=== PATIENT | female | born 1980 | race Caucasian/White ===

== ENCOUNTER 2017-03-21 20:25 | Emergency (ER) | payer BC, MEDICAID, OTHER ==
[2017-03-21 20:52] VITALS: BP 112/88; PULSE 94; RESP 18; TEMP 97.2; O2SAT 94
[2017-03-21] MEDS ORDERED: ONDANSETRON 4MG PREPACK#2 BTL TAKEHOME ONE (22:02)
[2017-03-21] MEDS ORDERED: ONDANSETRON DISINTEGRATING 4 MG TAB PO ONE (22:03)
--- NOTE | 2017-03-21 22:03 | UCPHY ---
H & P Time Seen by Provider: 03/21/17 21:07 Patient Type: New HPI/ROS: This patient is holding her head crying and vomited 1 time before arrival. Patient has developmental delay and is minimally verbal. this was difficult for her parents ascertain whether she had head injury or not. They her that she did have a fall during dance class but it is unclear whether she struck her head. There was not a loss of consciousness. Her father clarifies that she vomited 2 times prior to arrival and she is tearful and holding her head. She points to the right parietal area as the site of pain. She is tearful on arrival. ROS: Limited due to the patient's disability but she seems to deny any neck or back pain. Patient was emotionally upset about not being able to watch a movie earlier that day per her father. Parents noted no wound to her head and no obvious trauma elsewhere. She is ambulating without difficulty. Neuro: She has a history of seizures but no known seizures today. No tongue biting or incontinence per parents. 10 point ROS is limited but otherwise negative Past Medical/Surgical History: Developmental delay Seizures Smoking Status: Never smoked Physical Exam: Physical exam: Vital signs are normal General: Patient is in no acute distress. HEENT: Is no external evidence of trauma on exam except for mild right parietal tenderness without hematoma, abrasion or laceration.. Nose atraumatic. Ears: Clear bilaterally with no hemotympanum. Oropharynx: No dental trauma or malocclusion. No intraoral lacerations. Eyes: Pupils are equal and reactive to light. She has a baseline dysconjugate gaze. 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 Optic fundi: Unable to perform due to patient not cooperating with exam. Neck: Trachea is midline with no stridor. The patient has no midline neck tenderness and retains a full range of motion without increase in pain. Lungs: Clear to auscultation bilaterally Cardiac: Regular rate and rhythm no murmur gallop or rub. Chest: Nontender. Abdomen: Soft nontender no organomegaly Back: Nontender Extremities: Atraumatic Neuro: Patient is alert and vigorous moving all extremities with full strength throughout. Cranial nerves II through XII grossly intact. No sensory or motor deficits are appreciated. Initial differential diagnosis: Emotional upset with tension headache, fall with subdural hemorrhage or concussion, AVM with intracranial bleed, minor head injury Constitutional: Initial Vital Signs Temperature (C) 36.2 C 03/21/17 20:49 Heart Rate 94 03/21/17 20:49 Respiratory Rate 18 03/21/17 20:49 Blood Pressure 112/88 H 03/21/17 20:49 O2 Sat (%) 94 03/21/17 20:49 O2 Delivery Mode Room Air Allergies/Adverse Reactions: No Known Allergies Allergy (Unverified 08/22/11 15:52) Home Medications: Medication Instructions Recorded carBAMazepine [TEGretol (*)] 03/21/17 MDM/Departure - MDM Diagnostics: CT brain: Normal per radiologist. Medications Given: Discontinued Medications Acetaminophen (Tylenol) 650 mg PO EDNOW ONE Stop: 03/21/17 22:05 Last Admin: 03/21/17 22:22 Dose: 650 mg Ondansetron HCl (Zofran Odt 4 Mg Prepack#2) 1 btl TAKEHOME EDNOW ONE Stop: 03/21/17 22:03 Last Admin: 03/21/17 22:22 Dose: 1 btl Ondansetron HCl (Zofran Odt) 4 mg PO EDNOW ONE Stop: 03/21/17 22:04 Last Admin: 03/21/17 22:22 Dose: 4 mg ED Course/Re-evaluation: Course: Patient is crying resolved after she received 4mg Zofran for nausea vomiting with no further vomiting thereafter. She tolerated p.o. intake. She was given Tylenol for headache. Discussion: This patient's history is limited due to her developmental delay with minimal verbal status. Given her crying and vomiting x2 with holding her head in unclear history of felt it was important to rule out intracranial bleed , subdural hemorrhage etc. Her CT is normal. No clinical evidence externally of significant trauma. I counseled her family regarding the normal CT. They are comfortable bringing the patient home - Depart Disposition: Home, Routine, Self-Care Clinical Impression: Headache Qualifiers: Headache type: unspecified Headache chronicity pattern: acute headache Intractability: not intractable Qualified Code(s): R51 - Headache Vomiting Qualifiers: Vomiting type: unspecified Vomiting Intractability: non-intractable Nausea presence: unspecified Qualified Code(s): R11.10 - Vomiting, unspecified Condition: Good Instructions: Tension Headache (ED), Acute Nausea and Vomiting (ED) Additional Instructions: Diagnosis: Headache 2. Vomiting Head CT appears normal tonight. Plan: Home-Zofran for nausea if needed Tylenol for pain if needed Go to the emergency department for any significant worsening despite the treatment plan. Referrals: Shayy Donnelly MD [Primary Care Provider] - As per Instructions - PQRS PQRS Measurement: NA
[2017-03-21] MEDS ORDERED: ACETAMINOPHEN 325 MG TAB PO ONE (22:04)
[2017-03-21] MEDS ORDERED: ACETAMINOPHEN 325 MG TAB ONE (22:21)
== END 2017-03-21 22:30 | disposition home or self-care (01) ==
LOC: CED 20:25
DX: R51 Headache (principal); R11.10 Vomiting, unspecified
CPT/HCPCS: 70450; G0463